=== PATIENT | male | born 1975 | race Two or more races ===

== ENCOUNTER 2017-07-13 20:15 | Inpatient (IN) | payer OTHER, MEDICAID ==
[~2017-07-13] VITALS: Ht 182.9 cm; Wt 87.8 kg
[2017-07-13] MEDS ORDERED: LORazepam 2 MG TABLET PO PRN (23:30)
[2017-07-13] MEDS ORDERED: OLANZapine 5 MG RAPDIS TABLET PO PRN (23:30)
[2017-07-13] MEDS ORDERED: ZOLPIDEM TARTRATE 10 MG TABLET PO PRN (23:30)
[2017-07-14] MEDS ORDERED: PNEUMOCOCCAL VACCINE POLYVALENT 0.5 ML VIAL [PPSV23] IM ONE (00:30)
[2017-07-14] MEDS ORDERED: INFLUENZA VIRUS VACCINE QVS 2017-18 (3YR+)/PF 60 MCG/0.5 ML SYRINGE IM ONE (00:30)
[2017-07-14] MEDS: OLANZapine 5 MG RAPDIS TABLET PO SCH ×2 (00:30→20:28)
[2017-07-14 01:10] VITALS: BP 125/83
[2017-07-14 07:58] LABS: BASOPHILS % (AUTO) 0.3 % (0.0-2.0); EOSINOPHILS % (AUTO) 1.4 % (1.0-6.0); HEMATOCRIT 36.2 % (41-53); HEMOGLOBIN 12.6 g/dL (13.5-17.5); LYMPHOCYTES # (AUTO) 2.2 K/uL (1.0-4.8); LYMPHOCYTES % (AUTO) 35.3 % (22.0-44.0); MEAN CORPUSCULAR HGB CONC 34.7 G/dL (31.0-37.0); MEAN CORPUSCULAR VOLUME 89 fL (80-100); MONOCYTES # (AUTO) 0.6 K/uL (0.1-1.0); MONOCYTES % (AUTO) 9.5 % (2.0-9.0); NEUTROPHILS # (AUTO) 3.3 K/uL (1.8-7.7); NEUTROPHILS % (AUTO) 53.5 % (40.0-70.0); PLATELET COUNT (AUTO) 234 K/uL (150-450); RED BLOOD CELL COUNT(AUTO) 4.06 MIL/uL (4.50-5.90); RED CELL DISTRIBUTION WIDTH 14.3 % (11.5-14.5); WHITE BLOOD COUNT (AUTO) 6.3 K/uL (4.5-11.0)
[2017-07-14 08:13] VITALS: BP 123/72
[2017-07-14 08:26] LABS: HEMOGLOBIN A1C 6.1 % (4.5-6.2)
[2017-07-14 08:44] LABS: APPEARANCE,URINE TURBID (CLEAR); GLUCOSE, URINE (UA) NEGATIVE (NEGATIVE); KETONES,URINE 15 mg/dL (NEGATIVE); LEUKOCYTE ESTERASE ,URINE SMALL (NEGATIVE); OCCULT BLOOD,URINE NEGATIVE (NEGATIVE); PROTEIN,URINE NEGATIVE (NEGATIVE)
[2017-07-14 08:51] LABS: ADD UA MICROSCOPIC YES
[2017-07-14 09:01] LABS: RBC,URINE 0-2 /HPF (0-2)
[2017-07-14 09:02] LABS: AMORPHOUS SEDIMENT,UR Many /LPF (None Seen); SQUAMOUS EPITHELIAL CELL,UR Few /LPF (None Seen)
[2017-07-14 09:05] LABS: ALANINE AMINOTRANSFERASE 67 U/L (12-78); ALBUMIN 3.4 g/dL (3.4-5.0); ANION GAP 8 mmol/L (8-16); ASPARTATE AMINOTRANSFERASE 61 U/L (15-37); BILIRUBIN,TOTAL 0.5 mg/dL (0.1-1.0); CARBON DIOXIDE 28 mmol/L (22-29); CHLORIDE 104 mmol/L (98-107); CHOL/HDL RATIO 3.5 (4.2-7.3); CREATININE 0.95 mg/dL (0.60-1.30); GLOMERULAR FILTR. RATE CALC > 60 mL/min (>60); POTASSIUM 3.5 mmol/L (3.5-5.1); SODIUM SERUM 140 mmol/L (136-145); THYROID STIMULATING HORMONE 1.12 uIU/mL (0.36-3.74); TOTAL PROTEIN, SERUM 6.3 g/dL (6.4-8.2); UREA NITROGEN, BLOOD 18 mg/dL (7-18)
[2017-07-14] MEDS ORDERED: MAGNESIUM HYDROXIDE SUSPENSION 30 ML UDCUP PO PRN (13:45)
[2017-07-14] MEDS ORDERED: MAG HYDROX/AL HYDROX/SIMETH ES 30 ML SUSPENSION UDCUP PO PRN (13:45)
[2017-07-14] MEDS ORDERED: GuaiFENesin/D-METHORPHAN [SUGAR-FREE] 200-20MG/10 ML SYRUP UDCUP PO PRN (13:45)
[2017-07-14] MEDS ORDERED: LOPERAMIDE HCL 2 MG CAPSULE PO PRN (13:45)
[2017-07-14] MEDS ORDERED: HydrOXYzine PAMOATE 50 MG CAPSULE PO PRN (13:45)
[2017-07-14] MEDS ORDERED: TUBERCULIN, PURIFIED PROTEIN DERIVATIVE 5 TU/0.1 ML SYG ID ONE (13:45)
[2017-07-14] MEDS ORDERED: ACETAMINOPHEN 325 MG TABLET PO PRN (13:45)
[2017-07-14] MEDS ORDERED: PROMETHAZINE HCL 25 MG TABLET PO PRN (13:45)
[2017-07-14 16:06] VITALS: BP 128/85
[2017-07-14] MEDS: THIAMINE HCL 100 MG TABLET PO SCH (16:32)
[2017-07-14] MEDS ORDERED: LATANOPROST 0.005% 2.5 ML OPHTHALMIC SOLUTION OU SCH (21:00)
[2017-07-15 06:14] VITALS: BP 103/95
[2017-07-15] MEDS: THIAMINE HCL 100 MG TABLET PO SCH (08:09)
[2017-07-15 08:14] VITALS: BP 100/50
[2017-07-15] MEDS ORDERED: NALTREXONE HCL 50 MG TABLET PO SCH (09:00)
[2017-07-15] MEDS ORDERED: BRIMONIDINE TARTRATE 0.15% 5 ML OPHTHALMIC SOLUTION OU SCH (09:00)
[2017-07-15] MEDS ORDERED: DORZOLAMIDE/TIMOLOL 2-0.5% [22.3-6.8MG/ML] 10 ML OPHTHALMIC SOLUTION OU SCH (09:00)
[2017-07-15] MEDS ORDERED: FOLIC ACID 1 MG TABLET PO SCH (09:00)
[2017-07-15] MEDS ORDERED: MULTIVITAMINS WITH MINERALS, THERAPEUTIC TABLET PO SCH (09:00)
[2017-07-15] MEDS ORDERED: OLANZapine 10 MG TABLET PO SCH (10:15)
[2017-07-15] MEDS ORDERED: DIVALPROEX SODIUM 500 MG DR TABLET PO SCH (10:15)
[2017-07-15] MEDS ORDERED: NALT50TA PO (12:09)
== END 2017-07-15 11:35 | disposition left against medical advice (07) | DRG 885 ==
LOC: EDSTATUS 20:16 → B2X 21:45
PROVIDERS: ADMIT Psychiatry & Neurology Psychiatry; ATTEND Psychiatry & Neurology Psychiatry
DX: F20.0 Paranoid schizophrenia (principal); R45.851 Suicidal ideations; Z59.0 Homelessness; D64.9 Anemia, unspecified; F12.90 Cannabis use, unspecified, uncomplicated; S60.519A Abrasion of unspecified hand, initial encounter; F17.210 Nicotine dependence, cigarettes, uncomplicated; H40.9 Unspecified glaucoma; H54.61 Unqualified visual loss, right eye, normal vision left eye; X58.XXXA Exposure to other specified factors, initial encounter; Z91.19 Patient's noncompliance with other medical treatment and regimen; Y93.89 Activity, other specified; Y92.89 Other specified places as the place of occurrence of the external cause; Y99.8 Other external cause status; Z28.21 Immunization not carried out because of patient refusal; Z53.21 Procedure and treatment not carried out due to patient leaving prior to being seen by health care provider
CPT/HCPCS: 80307; 83036; 84439; 84443; 87086

== ENCOUNTER 2018-05-09 01:38 | Inpatient (IN) | payer MEDICARE, MEDICAID ==
[~2018-05-09] VITALS: Ht 182.9 cm; Wt 102.1 kg
[~2018-05-09 01:38] MED LIST: NALT50TA PO
[2018-05-09] MEDS ORDERED: DIVA125T2 PO (01:58)
[2018-05-09 02:11] LABS: BASOPHILS % (AUTO) 0.7 % (0.0-2.0); EOSINOPHILS % (AUTO) 1.9 % (1.0-6.0); HEMATOCRIT 38.9 % (41-53); HEMOGLOBIN 13.2 g/dL (13.5-17.5); LYMPHOCYTES # (AUTO) 3.4 K/uL (1.0-4.8); LYMPHOCYTES % (AUTO) 37.9 % (22.0-44.0); MEAN CORPUSCULAR HEMOGLOBIN 31.3 pg (26.0-34.0); MEAN CORPUSCULAR HGB CONC 33.9 G/dL (31.0-37.0); MEAN CORPUSCULAR VOLUME 92 fL (80-100); MONOCYTES # (AUTO) 0.8 K/uL (0.1-1.0); NEUTROPHILS # (AUTO) 4.6 K/uL (1.8-7.7); NEUTROPHILS % (AUTO) 50.5 % (40.0-70.0); PLATELET COUNT (AUTO) 266 K/uL (150-450); RED BLOOD CELL COUNT(AUTO) 4.22 MIL/uL (4.50-5.90); RED CELL DISTRIBUTION WIDTH 14.1 % (11.5-14.5)
[2018-05-09 02:20] LABS: ANION GAP 10 mmol/L (8-16); CALCIUM, TOTAL 8.9 mg/dL (8.8-10.5); CARBON DIOXIDE 26 mmol/L (22-29); CHLORIDE 106 mmol/L (98-107); CREATININE 1.16 mg/dL (0.60-1.30); GLOMERULAR FILTR. RATE CALC > 60 mL/min (>60); GLUCOSE,RANDOM 108 mg/dL (70-110); POTASSIUM 3.9 mmol/L (3.5-5.1); SODIUM SERUM 142 mmol/L (136-145); UREA NITROGEN, BLOOD 20 mg/dL (7-18)
[2018-05-09 02:25] LABS: ALANINE AMINOTRANSFERASE 52 U/L (12-78); ALBUMIN 3.8 g/dL (3.4-5.0); ALKALINE PHOSPHATASE 80 U/L (46-116); ASPARTATE AMINOTRANSFERASE 21 U/L (15-37); BILIRUBIN,TOTAL 0.4 mg/dL (0.1-1.0); TOTAL PROTEIN, SERUM 7.5 g/dL (6.4-8.2)
[2018-05-09 04:05] LABS: AMPHET/METH SCREEN,URINE NEGATIVE (NEGATIVE); BARBITURATE SCREEN, URINE NEGATIVE (NEGATIVE); BENZODIAZEPINES SCREEN,URINE NEGATIVE (NEGATIVE); CANNABINOID SCREEN,URINE POSITIVE (NEGATIVE); COCAINE SCREEN,URINE NEGATIVE (NEGATIVE); METHADONE SCREEN, URINE NEGATIVE (NEGATIVE); OPIATE SCREEN,URINE NEGATIVE (NEGATIVE)
[2018-05-09 04:08] LABS: PHENCYCLIDINE SCREEN,URINE NEGATIVE (NEGATIVE)
[2018-05-09] MEDS ORDERED: ZOLPIDEM TARTRATE 10 MG TABLET PO PRN (08:45)
[2018-05-09] MEDS ORDERED: LORazepam 2 MG TABLET PO PRN (08:45)
[2018-05-09] MEDS ORDERED: HALOPERIDOL 5 MG TABLET PO PRN (08:45)
[2018-05-09 08:54] VITALS: BP 140/82
[2018-05-09] MEDS ORDERED: GuaiFENesin/D-METHORPHAN [SUGAR-FREE] 200-20MG/10 ML SYRUP UDCUP PO PRN (11:00)
[2018-05-09] MEDS ORDERED: PETROLATUM,WHITE 71 GM JELLY TP PRN (11:00)
[2018-05-09] MEDS ORDERED: TIMOLOL MALEATE 0.5% 5 ML OPHTHALMIC SOLUTION OU SCH (11:00)
[2018-05-09] MEDS ORDERED: LOPERAMIDE HCL 2 MG CAPSULE PO PRN (11:00)
[2018-05-09] MEDS ORDERED: NICOTINE 14 MG/24 HOUR PATCH TD PRN (11:00)
[2018-05-09] MEDS: BRIMONIDINE TARTRATE 0.15% 5 ML OPHTHALMIC SOLUTION OU SCH ×2 (11:00→16:56)
[2018-05-09] MEDS ORDERED: MAGNESIUM HYDROXIDE SUSPENSION 30 ML UDCUP PO PRN (11:00)
[2018-05-09] MEDS ORDERED: ALBUTEROL SULFATE HFA 90 MCG/PUFF 8 GM INHALER IH PRN (11:00)
[2018-05-09] MEDS ORDERED: ACETAMINOPHEN 325 MG TABLET PO PRN (11:00)
[2018-05-09] MEDS ORDERED: CloNIDine HCL 0.1 MG TABLET PO PRN (11:00)
[2018-05-09] MEDS ORDERED: IBUPROFEN 400 MG TABLET PO PRN (11:00)
[2018-05-09] MEDS ORDERED: DOCUSATE SODIUM 100 MG CAPSULE PO PRN (11:00)
[2018-05-09] MEDS ORDERED: ONDANSETRON HCL 4 MG TABLET PO PRN (11:00)
[2018-05-09] MEDS ORDERED: MAG HYDROX/AL HYDROX/SIMETH ES 30 ML SUSPENSION UDCUP PO PRN (11:00)
[2018-05-09 16:06] VITALS: BP 121/75
[2018-05-09] MEDS ORDERED: DORZOLAMIDE/TIMOLOL 2-0.5% [22.3-6.8MG/ML] 10 ML OPHTHALMIC SOLUTION OU SCH (17:00)
[2018-05-09] MEDS ORDERED: RisperiDONE 1 MG TABLET PO SCH (21:00)
[2018-05-09] MEDS ORDERED: DIVALPROEX SODIUM 500 MG ER TABLET PO SCH (21:00)
[2018-05-09] MEDS ORDERED: BIMATOPROST 0.01% 2.5 ML OPHTHALMIC SOLUTION OU SCH (21:00)
[2018-05-10 06:16] VITALS: BP 138/81
[2018-05-10 08:23] LABS: CHOL/HDL RATIO 5.3 (4.2-7.3)
[2018-05-10 08:32] VITALS: BP 118/62
[2018-05-10] MEDS ORDERED: DORZOLAMIDE/TIMOLOL 2-0.5% [22.3-6.8MG/ML] 10 ML OPHTHALMIC SOLUTION OU SCH (09:00)
[2018-05-10] MEDS ORDERED: BRIMONIDINE TARTRATE 0.15% 5 ML OPHTHALMIC SOLUTION OU SCH (09:00)
[2018-05-10] MEDS ORDERED: HALOPERIDOL LACTATE 5 MG/ML VIAL ONE (14:20)
[2018-05-10] MEDS ORDERED: LORazepam 2 MG/ML VIAL ONE (14:20)
[2018-05-10] MEDS ORDERED: DiphenhydrAMINE HCL 50 MG/ML VIAL ONE (14:20)
[2018-05-10] MEDS ORDERED: LORazepam 2 MG/ML VIAL IM ONE (14:30)
[2018-05-10] MEDS ORDERED: DiphenhydrAMINE HCL 50 MG/ML VIAL IM ONE (14:30)
[2018-05-10] MEDS ORDERED: HALOPERIDOL LACTATE 5 MG/ML VIAL IM ONE (14:30)
== END 2018-05-10 19:44 | DRG 885 ==
LOC: EMS 01:38 → B2X 03:30
DX: F25.9 Schizoaffective disorder, unspecified (principal); R45.851 Suicidal ideations; H40.9 Unspecified glaucoma; F12.90 Cannabis use, unspecified, uncomplicated; D64.9 Anemia, unspecified; F41.9 Anxiety disorder, unspecified; G47.00 Insomnia, unspecified; F10.10 Alcohol abuse, uncomplicated; Y90.9 Presence of alcohol in blood, level not specified; Z91.14 Patient's other noncompliance with medication regimen; Z91.5 Personal history of self-harm
CPT/HCPCS: 83036; 93005; 99285; G0480; J1200; J1630; J2060

== ENCOUNTER 2018-05-10 16:13 | Inpatient (IN) | payer MEDICARE, MEDICAID ==
[~2018-05-10] VITALS: Ht 182.9 cm; Wt 102.3 kg
[2018-05-10 15:30] VITALS: BP 138/74
[~2018-05-10 16:13] MED LIST changes: +DIVA125T2 PO; -NALT50TA PO
[2018-05-10] MEDS ORDERED: HALOPERIDOL 5 MG TABLET PO PRN (16:30)
[2018-05-10] MEDS ORDERED: CloNIDine HCL 0.1 MG TABLET PO PRN (17:30)
[2018-05-10] MEDS ORDERED: PETROLATUM,WHITE 71 GM JELLY TP PRN (17:30)
[2018-05-10] MEDS ORDERED: GuaiFENesin/D-METHORPHAN [SUGAR-FREE] 200-20MG/10 ML SYRUP UDCUP PO PRN (17:30)
[2018-05-10] MEDS ORDERED: ONDANSETRON HCL 4 MG TABLET PO PRN (17:30)
[2018-05-10] MEDS ORDERED: MAGNESIUM HYDROXIDE SUSPENSION 30 ML UDCUP PO PRN (17:30)
[2018-05-10] MEDS ORDERED: DOCUSATE SODIUM 100 MG CAPSULE PO PRN (17:30)
[2018-05-10] MEDS ORDERED: LOPERAMIDE HCL 2 MG CAPSULE PO PRN (17:30)
[2018-05-10] MEDS ORDERED: ALBUTEROL SULFATE HFA 90 MCG/PUFF 8 GM INHALER IH PRN (17:30)
[2018-05-10] MEDS ORDERED: IBUPROFEN 400 MG TABLET PO PRN (17:30)
[2018-05-10] MEDS ORDERED: MAG HYDROX/AL HYDROX/SIMETH ES 30 ML SUSPENSION UDCUP PO PRN (17:30)
[2018-05-10] MEDS ORDERED: ACETAMINOPHEN 325 MG TABLET PO PRN (17:30)
[2018-05-10] MEDS: RisperiDONE 1 MG TABLET PO SCH (20:18)
[2018-05-10] MEDS: DIVALPROEX SODIUM 500 MG ER TABLET PO SCH (20:25)
[2018-05-10] MEDS: BIMATOPROST 0.01% 2.5 ML OPHTHALMIC SOLUTION OU SCH (20:25)
[2018-05-10] MEDS: DORZOLAMIDE/TIMOLOL 2-0.5% [22.3-6.8MG/ML] 10 ML OPHTHALMIC SOLUTION OU SCH (20:25)
[2018-05-10] MEDS: BRIMONIDINE TARTRATE 0.15% 5 ML OPHTHALMIC SOLUTION OU SCH (20:25)
[2018-05-10] MEDS: LORazepam 2 MG TABLET PO PRN (20:36)
[2018-05-10] MEDS: ZOLPIDEM TARTRATE 10 MG TABLET PO PRN (21:24)
[2018-05-11 08:05] VITALS: BP 145/73
[2018-05-11 08:10] LABS: HEMOGLOBIN A1C 5.9 % (4.5-6.2)
[2018-05-11 08:12] LABS: % IRON SATURATION 24.4 % (30-44); BASOPHILS % (AUTO) 0.4 % (0.0-2.0); HEMATOCRIT 41.4 % (41-53); LYMPHOCYTES # (AUTO) 2.5 K/uL (1.0-4.8); MEAN CORPUSCULAR HEMOGLOBIN 30.7 pg (26.0-34.0); MEAN CORPUSCULAR HGB CONC 33.9 G/dL (31.0-37.0); MEAN CORPUSCULAR VOLUME 90 fL (80-100); MONOCYTES # (AUTO) 0.7 K/uL (0.1-1.0); MONOCYTES % (AUTO) 8.7 % (2.0-9.0); NEUTROPHILS # (AUTO) 4.7 K/uL (1.8-7.7); NEUTROPHILS % (AUTO) 57.9 % (40.0-70.0); PLATELET COUNT (AUTO) 270 K/uL (150-450); RED BLOOD CELL COUNT(AUTO) 4.57 MIL/uL (4.50-5.90)
[2018-05-11 08:31] LABS: ALANINE AMINOTRANSFERASE 48 U/L (12-78); ALBUMIN 3.5 g/dL (3.4-5.0); ALKALINE PHOSPHATASE 68 U/L (46-116); ANION GAP 10 mmol/L (8-16); ASPARTATE AMINOTRANSFERASE 22 U/L (15-37); BILIRUBIN,TOTAL 0.6 mg/dL (0.1-1.0); CARBON DIOXIDE 25 mmol/L (22-29); CHLORIDE 105 mmol/L (98-107); CHOL/HDL RATIO 5.4 (4.2-7.3); CHOLESTEROL 264 mg/dL (131-200); CREATININE 1.02 mg/dL (0.60-1.30); FERRITIN 238 ng/mL (26-388); GLOMERULAR FILTR. RATE CALC > 60 mL/min (>60); GLUCOSE,RANDOM 90 mg/dL (70-110); HDL CHOLESTEROL 49 mg/dL (40-60); LDL CHOL (CALC.) 189 mg/dL (0-130); POTASSIUM 3.8 mmol/L (3.5-5.1); SODIUM SERUM 140 mmol/L (136-145); THYROID STIMULATING HORMONE 1.99 uIU/mL (0.36-3.74); TOTAL PROTEIN, SERUM 7.2 g/dL (6.4-8.2); TRIGLYCERIDES 132 mg/dL (15-150); UREA NITROGEN, BLOOD 15 mg/dL (7-18)
[2018-05-11] MEDS: DORZOLAMIDE/TIMOLOL 2-0.5% [22.3-6.8MG/ML] 10 ML OPHTHALMIC SOLUTION OU SCH ×2 (09:02→20:06)
[2018-05-11] MEDS: BRIMONIDINE TARTRATE 0.15% 5 ML OPHTHALMIC SOLUTION OU SCH ×2 (09:03→20:05)
[2018-05-11] MEDS: LORazepam 2 MG TABLET PO PRN ×2 (16:03→20:05)
[2018-05-11 16:04] VITALS: BP 144/76
[2018-05-11] MEDS: RisperiDONE 1 MG TABLET PO SCH (20:05)
[2018-05-11] MEDS: ZOLPIDEM TARTRATE 10 MG TABLET PO PRN (20:05)
[2018-05-11] MEDS: DIVALPROEX SODIUM 500 MG ER TABLET PO SCH (20:05)
[2018-05-11] MEDS: BIMATOPROST 0.01% 2.5 ML OPHTHALMIC SOLUTION OU SCH (20:06)
[2018-05-12] MEDS: BRIMONIDINE TARTRATE 0.15% 5 ML OPHTHALMIC SOLUTION OU SCH ×2 (08:28→20:44)
[2018-05-12] MEDS: DORZOLAMIDE/TIMOLOL 2-0.5% [22.3-6.8MG/ML] 10 ML OPHTHALMIC SOLUTION OU SCH ×2 (08:28→20:44)
[2018-05-12 16:00] VITALS: BP 140/87
[2018-05-12] MEDS: LORazepam 2 MG TABLET PO PRN ×2 (16:16→20:45)
[2018-05-12] MEDS: BIMATOPROST 0.01% 2.5 ML OPHTHALMIC SOLUTION OU SCH (20:44)
[2018-05-12] MEDS: DIVALPROEX SODIUM 500 MG ER TABLET PO SCH (20:45)
[2018-05-12] MEDS: RisperiDONE 1 MG TABLET PO SCH (20:45)
[2018-05-12] MEDS: ZOLPIDEM TARTRATE 10 MG TABLET PO PRN (20:45)
[2018-05-13 07:14] VITALS: BP 125/77
[2018-05-13] MEDS: BRIMONIDINE TARTRATE 0.15% 5 ML OPHTHALMIC SOLUTION OU SCH ×2 (08:39→21:47)
[2018-05-13] MEDS: DORZOLAMIDE/TIMOLOL 2-0.5% [22.3-6.8MG/ML] 10 ML OPHTHALMIC SOLUTION OU SCH ×2 (08:39→21:46)
[2018-05-13 08:45] VITALS: BP 151/92
[2018-05-13] MEDS: LORazepam 2 MG TABLET PO PRN ×2 (12:40→21:45)
[2018-05-13 15:30] VITALS: BP 150/99
[2018-05-13] MEDS ORDERED: TraMADol HCL 50 MG TABLET PO PRN (15:30)
[2018-05-13 16:18] VITALS: BP 150/95
[2018-05-13] MEDS ORDERED: ACET325C PO (18:08)
[2018-05-13] MEDS ORDERED: BIMA12.5OS OU (18:08)
[2018-05-13] MEDS ORDERED: CLON-570 PO (18:08)
[2018-05-13] MEDS ORDERED: DSS100 PO (18:08)
[2018-05-13] MEDS ORDERED: LORA2TAB2 PO (18:08)
[2018-05-13] MEDS ORDERED: RISP1 PO (18:08)
[2018-05-13] MEDS ORDERED: DORZ210OS OU (18:08)
[2018-05-13] MEDS ORDERED: HALO5TAB2 PO (18:08)
[2018-05-13] MEDS: DIVALPROEX SODIUM 500 MG ER TABLET PO SCH (21:00)
[2018-05-13] MEDS ORDERED: COSO10OS OU (21:04)
[2018-05-13] MEDS ORDERED: BRIM155OS OU (21:04)
[2018-05-13] MEDS: RisperiDONE 1 MG TABLET PO SCH (21:45)
[2018-05-13] MEDS: ZOLPIDEM TARTRATE 10 MG TABLET PO PRN (21:45)
[2018-05-13] MEDS: BIMATOPROST 0.01% 2.5 ML OPHTHALMIC SOLUTION OU SCH (21:50)
[2018-05-13 22:22] VITALS: BP 139/78
[2018-05-14 06:43] VITALS: BP 122/72
[2018-05-14 08:05] VITALS: BP 128/78
[2018-05-14] MEDS: DORZOLAMIDE/TIMOLOL 2-0.5% [22.3-6.8MG/ML] 10 ML OPHTHALMIC SOLUTION OU SCH (09:47)
[2018-05-14] MEDS: BRIMONIDINE TARTRATE 0.15% 5 ML OPHTHALMIC SOLUTION OU SCH (09:47)
[2018-05-14] MEDS ORDERED: RISP1 PO (10:33)
[2018-05-14] MEDS ORDERED: DIVA500T52 PO (10:33)
[2018-05-14 16:00] VITALS: BP 131/89
== END 2018-05-14 17:00 | disposition home or self-care (01) | DRG 885 ==
LOC: B3A 16:32
DX: F25.1 Schizoaffective disorder, depressive type (principal); R45.851 Suicidal ideations; F12.10 Cannabis abuse, uncomplicated; F10.10 Alcohol abuse, uncomplicated; D64.9 Anemia, unspecified; F41.9 Anxiety disorder, unspecified; M54.2 Cervicalgia; M54.9 Dorsalgia, unspecified; G47.00 Insomnia, unspecified; H40.9 Unspecified glaucoma; Z71.41 Alcohol abuse counseling and surveillance of alcoholic; Z59.9 Problem related to housing and economic circumstances, unspecified; Z79.899 Other long term (current) drug therapy; Z71.51 Drug abuse counseling and surveillance of drug abuser
CPT/HCPCS: 72052; 72110; 82728; 83036; 83540; 83550; 84443

== ENCOUNTER 2018-05-13 17:31 | Emergency (ER) | payer MEDICARE, MEDICAID ==
[~2018-05-13] VITALS: Ht 180.3 cm; Wt 97.7 kg
[2018-05-13] MEDS ORDERED: CLON-570 PO (18:08)
[2018-05-13] MEDS ORDERED: DORZ210OS OU (18:08)
[2018-05-13] MEDS ORDERED: ACET325C PO (18:08)
[2018-05-13] MEDS ORDERED: HALO5TAB2 PO (18:08)
[2018-05-13] MEDS ORDERED: LORA2TAB2 PO (18:08)
[2018-05-13] MEDS ORDERED: DSS100 PO (18:08)
[2018-05-13] MEDS ORDERED: RISP1 PO (18:08)
[2018-05-13] MEDS ORDERED: BIMA12.5OS OU (18:08)
[2018-05-13] MEDS ORDERED: BIMATOPROST 0.01% 2.5 ML OPHTHALMIC SOLUTION OU ONE (19:45)
[2018-05-13] MEDS ORDERED: KETOROLAC TROMETHAMINE 60 MG/2 ML VIAL IM ONE (19:45)
[2018-05-13] MEDS ORDERED: DORZOLAMIDE HCL 2% 10 ML OPHTHALMIC SOLUTION OU ONE (19:45)
[2018-05-13] MEDS ORDERED: CYCLOBENZAPRINE HCL 10 MG TABLET PO ONE (19:45)
[2018-05-13 20:30] VITALS: BP 147/99
[2018-05-13] MEDS ORDERED: BRIMONIDINE TARTRATE 0.15% 5 ML OPHTHALMIC SOLUTION OU ONE (20:30)
[2018-05-13] MEDS ORDERED: DORZOLAMIDE/TIMOLOL 2-0.5% [22.3-6.8MG/ML] 10 ML OPHTHALMIC SOLUTION OU ONE (20:30)
[2018-05-13] MEDS ORDERED: COSO10OS OU (21:04)
[2018-05-13] MEDS ORDERED: BRIM155OS OU (21:04)
[2018-05-14] MEDS ORDERED: RISP1 PO (10:33)
[2018-05-14] MEDS ORDERED: DIVA500T52 PO (10:33)
== END 2018-05-13 21:20 | disposition home or self-care (01) ==
LOC: EMS 17:31
DX: M54.2 Cervicalgia (principal); M54.5 Low back pain; H40.9 Unspecified glaucoma; F20.9 Schizophrenia, unspecified; F41.9 Anxiety disorder, unspecified; F31.9 Bipolar disorder, unspecified; G47.00 Insomnia, unspecified
CPT/HCPCS: 96372; 99284; J1885